=== PATIENT | female | born 1965 | race Caucasian/White ===

== ENCOUNTER 2016-11-19 08:37 | Emergency (ER) | payer BC ==
[2016-11-19] MEDS: METHYLPREDNISOLONE PF 125MG/VIAL IVP ONE (08:59)
[2016-11-19 09:12] LABS: BASO % 0.5 % (0-6); EOS % 1.8 % (0-6); GRAN % 73.1 % (47-80); HEMATOCRIT 43.2 % (35.0-47.0); HEMOGLOBIN 14.7 gm/dl (11.6-16.0); LYMPH % 15.2 % (16-45); MEAN CELL VOLUME 94.7 fl (81-97); MEAN CORPUSCULAR HEMOGLOBIN 32.2 pg (27-33); MONO % 9.4 % (0-9); PLATELET COUNT 241 K/uL (130-400); RED BLOOD COUNT 4.56 M/uL (3.80-5.40); RED CELL DISTRIBUTION WIDTH 11.9 % (11.5-14.5); WHITE BLOOD COUNT W/O DIFF 6.1 K/uL (4.2-12.2)
[2016-11-19 09:17] LABS: ANION GAP 7.1 (7-16); BLOOD UREA NITROGEN 11 mg/dL (7-17); CARBON DIOXIDE 26.9 mmol/L (22-30); CREATININE 0.7 mg/dL (0.52-1.04); EST GLOMERULAR FILTRATION RATE > 60 ml/min; GLUCOSE,RANDOM 117 mg/dL (70-110)
--- NOTE | 2016-11-19 09:27 | Emergency Department Record ---
History of Present Illness - General Chief complaint: Facial Swelling Stated complaint: SWELLING OF LIPS Time Seen by Provider: 11/19/16 08:43 Source: Patient, EMS Mode of Arrival: EMS Limitations: No limitations - History of Present Illness Initial Comments: pt felt she has lip and cheek swelling from unknown etiology. pt has no joan or swallowing. MD Complaint: Facial swelling Onset/Timin -: Hour(s) Exposure: Unknown Symptoms: Facial swelling, Lip swelling Treatment Prior to Arrival: Benadryl Treatment Prior to Arrival Comment:: benadryl 50mg - Related Data Home Medications Medication Instructions Recorded Confirmed Last Taken Tramadol HCl [Ultram] 50 mg PO BID 11/19/16 11/19/16 Unknown Allergies Allergy/AdvReac Type Severity Reaction Status Date / Time Sulfa (Sulfonamide Allergy MUSCLE PAIN Verified 11/19/16 08:47 Antibiotics) Travel Screening - Travel/Exposure Within Last 30 Days Have you traveled within the last 30 days?: Yes Location Detail:: [place] - Travel/Exposure Within Last Year Have you traveled outside the [place] in the last year?: No - Additonal Travel Details Have you been exposed to anyone with a communicable illness?: No - Travel Symptoms Symptom Screening: None Review of Systems Reviewed: No additional complaints except as noted below Constitutional: Reports: As per HPI. Denies: Chills, Fever, Malaise, Night sweats, Weakness, Weight change Eyes: Reports: As per HPI. Denies: Eye discharge, Eye pain, Photophobia, Vision change ENT: Reports: As per HPI. Denies: Congestion, Dental pain, Ear pain, Epistaxis , Hearing loss, Throat pain Respiratory: Reports: As per HPI. Denies: Cough, Dyspnea, Hemoptysis, Stridor, Wheezes Cardiovascular: Reports: As per HPI. Denies: Arrhythmia, Chest pain, Dyspnea on exertion, Edema, Murmurs, Orthopnea, Palpitations, Paroxysmal nocturnal dyspnea, Rheumatic Fever, Syncope Endocrine: Reports: As per HPI. Denies: Fatigue, Heat or cold intolerance, Polydipsia, Polyuria Gastrointestinal: Reports: As per HPI. Denies: Abdominal pain, Constipation, Diarrhea, Hematemesis, Hematochezia, Melena, Nausea, Vomiting Genitourinary: Reports: As per HPI. Denies: Abnormal menses, Discharge, Dyspareunia, Dysuria, Frequency, Hematuria, Incontinence, Retention, Urgency Musculoskeletal: Reports: As per HPI. Denies: Arthralgia, Back pain, Gout, Joint swelling, Myalgia, Neck pain Skin: Reports: As per HPI. Denies: Bruising, Change in color, Change in hair/ nails, Lesions, Pruritus, Rash Neurological: Reports: As per HPI. Denies: Abnormal gait, Confusion, Headache, Numbness, Paresthesias, Seizure, Tingling, Tremors, Vertigo, Weakness Psychiatric: Reports: As per HPI. Denies: Anxiety, Auditory hallucinations, Depression, Homicidal thoughts, Suicidal thoughts, Visual hallucinations Hematological/Lymphatic: Reports: As per HPI. Denies: Anemia, Blood Clots, Easy bleeding, Easy bruising, Swollen glands Past Medical History - SOCIAL HISTORY Smoking Status: Never smoker Alcohol Use: Occasional Drug Use: None - RESPIRATORY Hx Respiratory Disorders: Yes Hx Bronchitis: Yes - CARDIOVASCULAR Hx Cardio Disorders: No - NEURO Hx Neuro Disorders: Yes Hx Headaches: Yes - GI Hx GI Disorders: No - Hx Genitourinary Disorders: No - ENDOCRINE Hx Endocrine Disorders: Yes Hx Diabetes: (hypoglycemic) - MUSCULOSKELETAL Hx Musculoskeletal Disorders: No - PSYCH Hx Psych Problems: No - HEMATOLOGY/ONCOLOGY Hx Hematology/Oncology Disorders: No Family Medical History Any Significant Family History?: No Physical Exam - General General Appearance: Alert, Oriented x3, Cooperative, No acute distress - Head Head exam: Normal inspection - Eye Eye exam: Normal appearance, PERRL, EOMI Pupils: Normal accommodation - ENT ENT exam: Normal exam, Mucous membranes moist, Normal external ear exam, Normal orophraynx, TM's normal bilaterally Ear exam: Normal external inspection. negative: External canal tenderness Nasal Exam: Normal inspection. negative: Discharge, Sinus tenderness Mouth exam: Tongue normal, Other (mild swelling of lower lip) Teeth exam: Normal inspection. negative: Dental caries Throat exam: Normal inspection. negative: Tonsillar erythema, Tonsillar exudate - Neck Neck exam: Normal inspection, Full ROM. negative: Tenderness - Respiratory Respiratory exam: Normal lung sounds bilaterally. negative: Respiratory distress - Cardiovascular Cardiovascular Exam: Regular rate, Normal rhythm, Normal heart sounds - GI/Abdominal GI/Abdominal exam: Soft, Normal bowel sounds. negative: Tenderness - Rectal Rectal exam: Deferred - exam: Deferred - Extremities Extremities exam: Normal inspection, Full ROM, Normal capillary refill. negative: Tenderness - Back Back exam: Reports: Normal inspection, Full ROM. Denies: Muscle spasm, Rash noted, Tenderness - Neurological Neurological exam: Alert, CN II-XII intact, Normal gait, Oriented X3 - Psychiatric Psychiatric exam: Normal affect, Normal mood - Skin Skin exam: Dry, Intact, Normal color, Warm Course Vital Signs 11/19/16 08:38 Temperature 98.1 F Pulse Rate 85 Respiratory 16 Rate Blood Pressure 145/100 Pulse Ox 96 - Reevaluation(s) Reevaluation #1: 11/19/16 10:14 pt feels much better Medical Decision Making - Lab Data Result diagrams: 11/19/16 09:02 11/19/16 09:02 Lab Results 11/19/16 11/19/16 Range/Units 09:02 09:02 WBC 6.1 (4.2-12.2) K/uL RBC 4.56 (3.80-5.40) M/uL Hgb 14.7 (11.6-16.0) gm/dl Hct 43.2 (35.0-47.0) % MCV 94.7 (81-97) fl MCH 32.2 (27-33) pg MCHC 34.0 (32-36) g/dl RDW 11.9 (11.5-14.5) % Plt Count 241 (130-400) K/uL MPV 10.0 (7.4-10.4) fl Gran % 73.1 (47-80) % Lymphocytes % 15.2 L (16-45) % Monocytes % 9.4 H (0-9) % Eosinophils % 1.8 (0-6) % Basophils % 0.5 (0-6) % Sodium 141 (136-145) mmol/L Potassium 3.9 (3.5-5.1) mmol/L Chloride 107 (98-107) mmol/L Carbon Dioxide 26.9 (22-30) mmol/L Anion Gap 7.1 (7-16) BUN 11 (7-17) mg/dL Creatinine 0.7 (0.52-1.04) mg/dL Estimated GFR > 60 ml/min Random Glucose 117 H (70-110) mg/dL Calcium 9.3 (8.5-10.1) mg/dL Disposition Disposition: Discharge Clinical Impression: Allergic reaction Qualifiers: Encounter type: initial encounter Qualified Code(s): T78.40XA - Allergy, unspecified, initial encounter Disposition: Home, Self-Care Condition: (1) Good Instructions: Allergies (ED) Forms: Patient Portal Access Quality - Quality Measures Quality Measures: N/A - Blood Pressure Screening Does Patient Have Any of the Following: No Blood Pressure Classification: Hypertensive Reading Systolic Measurement: 145 Diastolic Measurement: 100 Screening for High Blood Pressure: < First Hypertensive BP, F/U Documented > [ G8950] First Hypertensive Follow-up Interventions: Follow-up with rescreen GT 1 day and LT 4 weeks.
--- NOTE | 2016-11-19 10:33 | Emergency Department Record ---
History of Present Illness - General Chief complaint: Facial Swelling Stated complaint: SWELLING OF LIPS Time Seen by Provider: 11/19/16 08:43 Source: Patient, EMS Mode of Arrival: EMS Limitations: No limitations - History of Present Illness Onset/Timin -: Hour(s) Exposure: Unknown Symptoms: Facial swelling, Lip swelling Treatment Prior to Arrival: Benadryl - Related Data Home Medications Medication Instructions Recorded Confirmed Last Taken Tramadol HCl [Ultram] 50 mg PO BID 11/19/16 11/19/16 Unknown Allergies Allergy/AdvReac Type Severity Reaction Status Date / Time Sulfa (Sulfonamide Allergy MUSCLE PAIN Verified 11/19/16 08:47 Antibiotics) Travel Screening - Travel/Exposure Within Last 30 Days Have you traveled within the last 30 days?: Yes Location Detail:: [place] - Travel/Exposure Within Last Year Have you traveled outside the [place] in the last year?: No - Additonal Travel Details Have you been exposed to anyone with a communicable illness?: No - Travel Symptoms Symptom Screening: None Review of Systems Constitutional: Reports: As per HPI. Denies: Chills, Fever, Malaise, Night sweats, Weakness, Weight change Eyes: Reports: As per HPI. Denies: Eye discharge, Eye pain, Photophobia, Vision change ENT: Reports: As per HPI. Denies: Congestion, Dental pain, Ear pain, Epistaxis , Hearing loss, Throat pain Respiratory: Reports: As per HPI. Denies: Cough, Dyspnea, Hemoptysis, Stridor, Wheezes Cardiovascular: Reports: As per HPI. Denies: Arrhythmia, Chest pain, Dyspnea on exertion, Edema, Murmurs, Orthopnea, Palpitations, Paroxysmal nocturnal dyspnea, Rheumatic Fever, Syncope Endocrine: Reports: As per HPI. Denies: Fatigue, Heat or cold intolerance, Polydipsia, Polyuria Gastrointestinal: Reports: As per HPI. Denies: Abdominal pain, Constipation, Diarrhea, Hematemesis, Hematochezia, Melena, Nausea, Vomiting Genitourinary: Reports: As per HPI. Denies: Abnormal menses, Discharge, Dyspareunia, Dysuria, Frequency, Hematuria, Incontinence, Retention, Urgency Musculoskeletal: Reports: As per HPI. Denies: Arthralgia, Back pain, Gout, Joint swelling, Myalgia, Neck pain Skin: Reports: As per HPI. Denies: Bruising, Change in color, Change in hair/ nails, Lesions, Pruritus, Rash Neurological: Reports: As per HPI. Denies: Abnormal gait, Confusion, Headache, Numbness, Paresthesias, Seizure, Tingling, Tremors, Vertigo, Weakness Psychiatric: Reports: As per HPI. Denies: Anxiety, Auditory hallucinations, Depression, Homicidal thoughts, Suicidal thoughts, Visual hallucinations Hematological/Lymphatic: Reports: As per HPI. Denies: Anemia, Blood Clots, Easy bleeding, Easy bruising, Swollen glands Past Medical History - SOCIAL HISTORY Smoking Status: Never smoker Alcohol Use: Occasional Drug Use: None - RESPIRATORY Hx Respiratory Disorders: Yes Hx Bronchitis: Yes - CARDIOVASCULAR Hx Cardio Disorders: No - NEURO Hx Neuro Disorders: Yes Hx Headaches: Yes - GI Hx GI Disorders: No - Hx Genitourinary Disorders: No - ENDOCRINE Hx Endocrine Disorders: Yes Hx Diabetes: (hypoglycemic) - MUSCULOSKELETAL Hx Musculoskeletal Disorders: No - PSYCH Hx Psych Problems: No - HEMATOLOGY/ONCOLOGY Hx Hematology/Oncology Disorders: No Family Medical History Any Significant Family History?: No Physical Exam - General Limitations: No limitations Course Vital Signs 11/19/16 11/19/16 08:38 09:42 Temperature 98.1 F Pulse Rate 85 Pulse Rate [ 76 Pulse Ox Probe] Respiratory 16 16 Rate Blood Pressure 145/100 Blood Pressure 123/75 [Right Arm] Pulse Ox 96 96 Medical Decision Making - Lab Data Result diagrams: 11/19/16 09:02 11/19/16 09:02 Lab Results 11/19/16 11/19/16 Range/Units 09:02 09:02 WBC 6.1 (4.2-12.2) K/uL RBC 4.56 (3.80-5.40) M/uL Hgb 14.7 (11.6-16.0) gm/dl Hct 43.2 (35.0-47.0) % MCV 94.7 (81-97) fl MCH 32.2 (27-33) pg MCHC 34.0 (32-36) g/dl RDW 11.9 (11.5-14.5) % Plt Count 241 (130-400) K/uL MPV 10.0 (7.4-10.4) fl Gran % 73.1 (47-80) % Lymphocytes % 15.2 L (16-45) % Monocytes % 9.4 H (0-9) % Eosinophils % 1.8 (0-6) % Basophils % 0.5 (0-6) % Sodium 141 (136-145) mmol/L Potassium 3.9 (3.5-5.1) mmol/L Chloride 107 (98-107) mmol/L Carbon Dioxide 26.9 (22-30) mmol/L Anion Gap 7.1 (7-16) BUN 11 (7-17) mg/dL Creatinine 0.7 (0.52-1.04) mg/dL Estimated GFR > 60 ml/min Random Glucose 117 H (70-110) mg/dL Calcium 9.3 (8.5-10.1) mg/dL Disposition Disposition: Discharge Clinical Impression: Allergic reaction Qualifiers: Encounter type: initial encounter Qualified Code(s): T78.40XA - Allergy, unspecified, initial encounter Disposition: Home, Self-Care Condition: (1) Good Instructions: Allergies (ED) Additional Instructions: follow up with family doctor. return sooner if worse. continue benadryl every 6 hours as needed Forms: Patient Portal Access Quality - Quality Measures Quality Measures: N/A - Blood Pressure Screening Does Patient Have Any of the Following: No Blood Pressure Classification: Hypertensive Reading Systolic Measurement: 145 Diastolic Measurement: 100 Screening for High Blood Pressure: < First Hypertensive BP, F/U Documented > [ G8950] First Hypertensive Follow-up Interventions: Follow-up with rescreen GT 1 day and LT 4 weeks.
== END 2016-11-19 10:38 | disposition home or self-care (01) ==
LOC: ER 08:37
DX: T78.40XA Allergy, unspecified, initial encounter (principal); R20.0 Anesthesia of skin
CPT/HCPCS: 80048; 85025; 96374; 99284; J2930

== ENCOUNTER → 2018-05-27 | Day surgery (SDC) | payer BC ==
[~2018-05-27] MED LIST: ACETAMINOPHEN 1,000 MG/100 ML BTL IV ONE; FENTANYL PF 100MCG/2ML VIAL IV ONE; HYDROCODONE/APAP 5/325MG TABLET PO ONE; KETOROLAC 30 MG/ML VIAL IVP ONE; LIDOCAINE 2% MDV (20MG/ML) 20ML VIAL IV ONE; MIDAZOLAM HCL 2MG/2ML VIAL IV ONE; PROPOFOL 10 MG/ML VIAL IV ONE; SEVOFLURANE 250 ML INH ONE
--- NOTE | 2018-05-28 09:50 | Operative Note ---
DATE OF SURGERY: 05/27/2018 Surgeon: Jason Cali DO PREOPERATIVE DIAGNOSES: 1. Carpal tunnel syndrome of the left wrist. 2. Trigger finger left thumb. POSTOPERATIVE DIAGNOSES: 1. Carpal tunnel syndrome of the left wrist. 2. Trigger finger left thumb. OPERATION: 1. Decompression left median nerve at the wrist using 3.5 loop magnification. 2. Tenotomy A1 minnie left thumb using 3.5 loop magnification. DESCRIPTION OF PROCEDURE: This 52-year-old female was taken to the operating room and placed in the supine position on the operating room table. General anesthesia was induced. The left upper extremity was prepped with Hibiclens and draped in the usual sterile fashion. It was exsanguinated and the tourniquet inflated to 250 mmHg. An incision was made in the palm following the hypothenar crease from the level of the base of the webspace of the thumb to the flexor crease of the wrist, and dissection was carried down through the skin and subcutaneous tissue. Hemostasis obtained with the electrocautery. Palmar fascia divided in line with the skin incision. The flexor retinaculum was identified, punctured, and split to its proximal margin. Then, with the contents of the carpal tunnel under direct vision, the transverse carpal ligament was transected along its ulnar border. The radial flap was raised to expose the entire median nerve under the transverse carpal ligament. The recurrent motor branch of the median nerve was identified and found to be normal. Some thickening of the tenosynovium overlying the median nerve was present and this was divided but epineurotomy was not performed. The wound was irrigated with lactated Ringer's solution. Hemostasis obtained with the electrocautery. The wound closed with interrupted 6-0 nylon suture. We then directed our attention to the left thumb and an incision was made in the flexor crease of the MCP joint and dissection was carried down through the skin and subcutaneous tissue. The proximal edge of the A1 minnie was easily identified. Neurovascular bundles were retracted safely and then the A1 minnie was incised from its proximal to its distal margin under direct vision. The tendon was significantly affected by this, forming nodularities in 2 locations. One with tenosynovium adherent and interdigitating between the tendon fibers but no disruption of the tendon fibers was identified. Once the minnie had been opened, we just divided the tenosynovium in line with the tendon and the thumb was then flexed and extended without any difficulty without catching or locking. The wound was then irrigated and hemodialysis obtained with the electrocautery. The wound was closed with interrupted 6-0 nylon suture. Sterile dressings were applied with plaster of splint immobilization with the wrist in slight dorsiflexion and the thumb in an adducted position. GROSS PATHOLOGY: This patient demonstrated carpal tunnel compression by the transverse carpal ligament which was decompressed. In addition, marked nodularity of the FBL was identified. Opening of the A1 minnie corrected this condition. She was able to flex and extend without any catching or locking. CC: Toya MUJICA
== END | disposition home or self-care (01) ==
LOC: SUR 07:57
PROVIDERS: ATTEND Orthopaedic Surgery
DX: G56.02 Carpal tunnel syndrome, left upper limb (principal); M65.312 Trigger thumb, left thumb
CPT/HCPCS: 64721; 64727; 26055; 01810; J1885; J3010

== ENCOUNTER → 2018-07-01 | Day surgery (SDC) | payer BC ==
[~2018-07-01] MED LIST changes: -HYDROCODONE/APAP 5/325MG TABLET PO ONE; +LIDOCAINE 1% MPF 100MG/10ML STERILE-PAK AMPULE SQ ONE; -SEVOFLURANE 250 ML INH ONE
--- NOTE | 2018-07-02 07:10 | Operative Note ---
DATE OF SURGERY: 07/01/2018 Surgeon: Jason Cali DO PREOPERATIVE DIAGNOSIS: Trigger finger of the right thumb. POSTOPERATIVE DIAGNOSIS: Trigger finger of the right thumb. OPERATION: Tenotomy A1 minnie right thumb using 3.5 loop magnification. DESCRIPTION OF PROCEDURE: This 52-year-old female was taken to the operating room and placed in the supine position on the operating room table where assisted local anesthesia was induced. The right upper extremity was elevated, prepped with Hibiclens, and draped in the usual sterile fashion. It was exsanguinated and the tourniquet inflated to 250 mmHg. An incision was made in the flexor crease at the metacarpophalangeal joint of the right thumb and dissection was carried down through the skin and subcutaneous tissue. Hemostasis obtained with the electrocautery. The proximal edge of the A1 minnie was easily identified. The radial digital nerve was identified and protected. The ulnar digital nerve was also protected. With the minnie under direct vision, it was incised from its proximal to its distal margin to completely free up the FPL to allow us to flex and extend the tendon without catching or locking. There was nodularity within the tendon but it appeared otherwise unremarkable. The wound was copiously irrigated. The wound closed with interrupted 6-0 nylon suture. Sterile dressings were applied and the patient taken to the recovery room in satisfactory condition. GROSS PATHOLOGY: This patient demonstrated nodularity of the FPL of the right thumb causing triggering of the right thumb. CC: Toya MUJICA
== END | disposition home or self-care (01) ==
LOC: SUR 07:48
PROVIDERS: ATTEND Orthopaedic Surgery
DX: M65.311 Trigger thumb, right thumb (principal); E16.2 Hypoglycemia, unspecified
CPT/HCPCS: 26055; 01810; J1885; J3010; J3490

== ENCOUNTER 2019-01-27 07:26 | Day surgery (SDC) | payer BC ==
[2019-01-27] MEDS ORDERED: PROPOFOL 10 MG/ML VIAL IV ONE (07:27)
[2019-01-27] MEDS ORDERED: LIDOCAINE 2% MDV (20MG/ML) 20ML VIAL IV ONE (07:27)
--- NOTE | 2019-01-28 13:20 | Operative Note ---
OPERATION: COLONOSCOPY with cold forceps polypectomy. PREOPERATIVE DIAGNOSIS: Colon cancer screening, average risk. POSTOPERATIVE DIAGNOSES: 1. Mild sigmoid diverticulosis. 2. Sigmoid colon polyp. PREPARATION QUALITY: Good. ESTIMATED BLOOD LOSS: Minimum. SPECIMENS: Sigmoid colon polyp. COMPLICATIONS: None apparent. PROCEDURE: After informed consent was obtained from the patient, she was placed in the left lateral decubitus position in the endoscopy suite, sedated and monitored by the department of anesthesia. Digital rectal examination was unremarkable. A well-lubricated [id number] colonoscope was inserted into the rectum and advanced to the cecum. Preparation quality was good. The cecum, cecal bulb, ileocecal valve, appendiceal orifice, ascending colon, transverse colon, and descending colon were free of inflammatory changes, mass lesions, or polyps. There were mild sigmoid diverticular changes noted. There was also a diminutive polyp in the sigmoid colon which was removed with a cold forceps. The rectum was unremarkable in forward and J-turn views. The endoscope was straightened, the rectal ampulla deflated, and the endoscope was removed. RECOMMENDATIONS: The patient was advised to follow a high-fiber diet, consider the use of a fiber supplement. She will require repeat exam in 5-10 years pending tissue histology. As always, thank you for allowing me to participate in the healthcare of your patients. [place]
== END 2019-01-27 08:45 | disposition home or self-care (01) ==
LOC: HOP 07:26
PROVIDERS: ATTEND Internal Medicine Gastroenterology
DX: Z12.11 Encounter for screening for malignant neoplasm of colon (principal); D12.5 Benign neoplasm of sigmoid colon; K57.30 Diverticulosis of large intestine without perforation or abscess without bleeding; C50.919 Malignant neoplasm of unspecified site of unspecified female breast